=== PATIENT | female | born 1965 | race American Indian/Alaskan Native ===

== ENCOUNTER 2018-03-17 09:58 | Emergency (ER) | payer OTHER ==
--- NOTE | 2018-03-17 10:54 | ED PDOC ---
Arrival/HPI - General Historian: Patient - History of Present Illness Narrative History of Present Illness (Text): 03/17/18 10:50 A 52 year old female, whose past medical history includes cholecystectomy (4 yrs ago), presents to the emergency department complaining of worsening cold and body aches for the past week. Patient reports her cold has become progressively worse, and has been experiencing boy aches, chest tightness(starting 03:00-04:00 today), sore throat, congestion, and slight diarrhea(this morning). Patient denies any constipation, nausea, vomiting, abdominal pain, chest pain, shortness of breath, dysuria, hematuria, frequency, rash, no bump(s) on neck, or any other complaints at this time. Also, patient mentions taking Tylenol yesterday and other [id number] medications, however has had no relief of symptoms. Denies taking any recent antibiotics. No recent travel. No PMD Past Medical History - Provider Review Nursing Documentation Reviewed: Yes Family/Social History - Physician Review Nursing Documentation Reviewed: Yes Family/Social History: No Known Family HX Allergies/Home Meds Allergies/Adverse Reactions: Allergies No Known Allergies Allergy (Unverified 03/17/18 11:32) Review of Systems - Physician Review All systems were reviewed & negative as marked: Yes - Review of Systems Constitutional: absent: Fatigue, Night Sweats Eyes: absent: Vision Changes ENT: absent: Hearing Changes Respiratory: absent: SOB Cardiovascular: absent: Chest Pain (however patient experiences chest tightness starting around 03:00-04:00) Gastrointestinal: Diarrhea (slightly). absent: Abdominal Pain, Constipation, Nausea, Vomiting Genitourinary Female: absent: Dysuria, Frequency, Hematuria Musculoskeletal: absent: Arthralgias, Neck Pain, Other (no bump(s) on neck) Skin: absent: Rash Neurological: absent: Headache Physical Exam Vital Signs Reviewed: Yes Temperature: Afebrile Blood Pressure: Normal Pulse: Regular Respiratory Rate: Normal Appearance: Positive for: Well-Appearing Pain Distress: None Mental Status: Positive for: Alert and Oriented X 3 - Systems Exam Head: Present: Atraumatic, Normocephalic. No: Tenderness Pupils: Present: PERRL. No: Sluggish Extroacular Muscles: Present: EOMI. No: Gaze Palsy Conjunctiva: Present: Normal. No: Injected Ears: Present: NORMAL TM Mouth: Present: Moist Mucous Membranes Pharnyx: Present: Normal. No: ERYTHEMA, EXUDATE, TONSILS ENLARGED, Peritonsilar Swelling, Uvular Deviation, Muffled/Hoarse Voice, Strider, Soft Palate/Uvular Edema Nose (External): No: Atraumatic Nose (Internal): Present: Normal Inspection. No: Purulent Mucous Neck: Present: Normal Range of Motion. No: Meningeal Signs, MIDLINE TENDERNESS Respiratory/Chest: Present: Clear to Auscultation, Good Air Exchange. No: Respiratory Distress, Accessory Muscle Use Cardiovascular: Present: Regular Rate and Rhythm, Normal S1, S2. No: Murmurs Abdomen: No: Tenderness, Distention, Peritoneal Signs Back: Present: Normal Inspection. No: CVA Tenderness Upper Extremity: Present: Normal Inspection. No: Cyanosis, Edema Lower Extremity: Present: Normal Inspection. No: Edema Neurological: Present: GCS=15, CN II-XII Intact, Speech Normal Skin: Present: Warm, Dry, Normal Color. No: Rashes Psychiatric: Present: Alert, Oriented x 3, Normal Insight, Normal Concentration Medical Decision Making ED Course and Treatment: 03/17/18 10:54 Impression: 52 year old female with worsening cold like symptoms and body aches. Likely Viral URI. No posterior adenopathy. Well appearance. No dysphagia, odynophagia or change in phonation. No meningeal signs. No urinary complaints or vaginal d/c. She notes x1 episode of diarrhea without abdominal pain. No recent abx or travel abroad. No trauma or falls. No recent workouts. Plan: -- Reassess and disposition Progress Notes: 03/17/18 12:25 EK, NSR. PVC. No stemi, 03/17/18 12:38 pt denies any dark or bloody stool or trauma. She notes hx of iron def anemia but has been non-compliant with her iron meds Likely iron def anemia. 03/17/18 13:25 Xray unremarkable likely bronchitis- will d/c w/ zpack. will d/c home pt home w/ return indications and followup: including need to f/u w/ PMD regarding Anemia. Pt agreeable to plan. - Lab Interpretations I have reviewed the lab results: Yes - Scribe Statement The provider has reviewed the documentation as recorded by the Deepti Barahona Provider Scribe Attestation: All medical record entries made by the Deepti were at my direction and personally dictated by me. I have reviewed the chart and agree that the record accurately reflects my personal performance of the history, physical exam, medical decision making, and the department course for this patient. I have also personally directed, reviewed, and agree with the discharge instructions and disposition. Disposition/Present on Arrival - Present on Arrival Any Indicators Present on Arrival: No - Disposition Have Diagnosis and Disposition been Completed?: Yes Diagnosis: Bronchitis, Anemia Disposition: HOME/ ROUTINE Disposition Time: 13:26 Patient Problems: Current Active Problems Problem Status Onset Anemia Acute Bronchitis Acute Condition: GOOD Discharge Instructions (ExitCare): Acute Bronchitis, Anemia Caused by Low Iron, Adult (DC) Additional Instructions: TAKE THE ANTIBIOTICS AND FOLLOWUP WITH THE CLINIC. ALSO START RETAKING YOUR IRON PILLS THAT YOU HAVE AT HOME. DI AL, thank you for letting us take care of you today. Your provider was Trent Reed and you were treated for COLD / BODYACHES. The emergency medical care you received today was directed at your acute symptoms. If you were prescribed any medication, please fill it and take as directed. It may take several days for your symptoms to resolve. Return to the Emergency Department if your symptoms worsen, do not improve, or if you have any other problems. Please contact your doctor or call one of the physicians/clinics you have been referred to that are listed on the Patient Visit Information form that is included in your discharge packet. Bring any paperwork you were given at discharge with you along with any medications you are taking to your follow up v isit. Our treatment cannot replace ongoing medical care by a primary care provider outside of the emergency department. Thank you for allowing the [facility] team to be part of your care today. If you had an X-Ray or CT scan: A Radiologist will review the ED reading if any change in treatment is needed we will contact you. If you had a blood, urine, or wound culture: It will take several days for the results, if any change in treatment is needed we will contact you. If you had an STI test: It will take 48 hours for the results. Please call after 1 week if you have not heard back. Prescriptions: Azithromycin [Z-Bossman] 250 mg PO DAILY #6 tab Referrals: [facility] [Outside] - Follow up with primary [facility] [Outside] - Follow up with primary Forms: WORK NOTE
[2018-03-17 11:13] VITALS: BMI 33.9
[2018-03-17] MEDS ORDERED: Sodium Chloride 0.9% 1,000 ML IV SCH (11:15)
[2018-03-17 11:19] VITALS: TEMP 98.1; O2SAT 100
[2018-03-17 12:15] LABS: INFLUENZA A B NEGATIVE FOR FLU A/B (NEGATIVE)
[2018-03-17 12:20] LABS: BASO # 0.05 K/mm3 (0.0-2.0); BASO % 0.5 % (0.0-3.0); EOS # 0.6 (0.0-0.7); EOS % 5.7 % (1.5-5.0); GRAN # 7.02 (1.4-6.5); HEMOGLOBIN 8.1 g/dL (12.0-16.0); LYMPH # 2.6 (1.2-3.4); LYMPH % 23.5 % (22.0-35.0); MEAN CELL VOLUME 69.7 fl (80.0-105.0); MEAN CORPUSCULAR HEMOGLOBIN 19.8 pg (25.0-35.0); MEAN CORPUSCULAR HGB CONC 28.4 g/dl (31.0-37.0); MEAN PLATELET VOLUME 9.6 fl (7.0-11.0); MONO # 0.7 (0.1-0.6); MONO % 6.3 % (1.0-6.0); RBC 4.09 10^6/uL (3.5-6.1); RED CELL DISTRIBUTION WIDTH 21.8 % (11.5-14.5)
[2018-03-17 12:32] LABS: ALBUMIN 3.6 g/dL (3.0-4.8); ALT/SGPT 19 U/L (7-56); AST/SGOT 17 U/L (14-36); BLOOD UREA NITROGEN 9 mg/dL (7-21); CALCIUM 8.8 mg/dL (8.4-10.5); GFR NON-AFRICAN AMERICAN > 60
[2018-03-17 12:36] LABS: TROPONIN I < 0.01 ng/mL
[2018-03-17 13:49] VITALS: BP 150/75; PULSE 83; RESP 16
--- NOTE | 2018-03-17 14:03 | RAD ---
Date of service: 03/17/2018 HISTORY: cp COMPARISON: No prior. TECHNIQUE: Chest PA and lateral FINDINGS: LUNGS: No active pulmonary disease. PLEURA: No significant pleural effusion identified. No pneumothorax apparent. CARDIOVASCULAR: No aortic atherosclerotic calcification present. Normal cardiac size. No pulmonary vascular congestion. OSSEOUS STRUCTURES: No significant abnormalities. VISUALIZED UPPER ABDOMEN: Normal. OTHER FINDINGS: None. IMPRESSION: No active disease.
--- NOTE | 2018-03-17 19:16 | CARD ---
APPROVED REPORT Date of service: 03/17/2018 EKG Measurement Heart [id number] <Conclusion> Sinus rhythm with frequent premature ventricular complexes Possible Left atrial enlargement Borderline ECG
== END 2018-03-17 13:47 | disposition home or self-care (01) ==
LOC: ED 09:58
DX: J40 Bronchitis, not specified as acute or chronic (principal); D64.9 Anemia, unspecified
CPT/HCPCS: 71046; 80053; 82550; 84484; 85025; 87070; 87430; 87804; 93005; 99283; J7030

== ENCOUNTER 2018-06-16 12:29 | Emergency (ER) | payer OTHER ==
[2018-06-16 12:30] VITALS: BMI 33.9
[2018-06-16 13:17] VITALS: O2SAT 98
--- NOTE | 2018-06-16 14:31 | ED PDOC ---
Arrival/HPI - General Chief Complaint: Female Genitourinary Time Seen by Provider: 06/16/18 13:34 Historian: Patient - History of Present Illness Narrative History of Present Illness (Text): 06/16/18 14:31 52-year-old female presents today with vaginal discharge 2 days. Patient states she has a white vaginal discharge with a fishy odor to it. Patient states she has not been sexually active in approximately 45 days. Patient states when she was a teenager she was diagnosed with an STD but has not had any STDs recently. Patient states she's been having slight achy sensation in the abdomen. Denies nausea vomiting diarrhea or constipation. No chest pain or shortness of breath. She denies fevers or chills. No other complaints Past Medical History - Provider Review Nursing Documentation Reviewed: Yes - Travel History Have you recently traveled outside [place] w/in the past 3 mons?: No - Infectious Disease Hx of Infectious Diseases: None - Reproductive Menopause: No - Psychiatric Hx Substance Use: No - Surgical History Hx Cholecystectomy: Yes Other/Comment: Chay Muhammad 2007 - Anesthesia Hx Anesthesia Reactions: No Family/Social History - Physician Review Nursing Documentation Reviewed: Yes Family/Social History: Unknown Family HX Smoking Status: Never Smoked Hx Alcohol Use: Yes Hx Substance Use: No Allergies/Home Meds Allergies/Adverse Reactions: Allergies No Known Allergies Allergy (Unverified 03/17/18 11:32) Review of Systems - Review of Systems Constitutional: absent: Fatigue, Fevers Respiratory: absent: SOB, Cough Cardiovascular: absent: Chest Pain, Palpitations Gastrointestinal: Abdominal Pain. absent: Constipation, Diarrhea, Nausea, Vomiting Genitourinary Female: Vaginal Discharge. absent: Dysuria, Frequency, Hematuria, Vaginal Bleeding Musculoskeletal: absent: Arthralgias, Back Pain, Neck Pain Skin: absent: Rash, Pruritis Neurological: absent: Headache, Dizziness Psychiatric: absent: Anxiety, Depression Physical Exam Vital Signs Reviewed: Yes Vital Signs Temp Pulse Resp BP Pulse Ox 06/16/18 13:14 98.8 F 87 18 150/84 98 Temperature: Afebrile Blood Pressure: Normal Pulse: Regular Respiratory Rate: Normal Appearance: Positive for: Well-Appearing, Non-Toxic, Comfortable Pain Distress: None Mental Status: Positive for: Alert and Oriented X 3 - Systems Exam Head: Present: Atraumatic Mouth: Present: Moist Mucous Membranes Neck: Present: Normal Range of Motion Respiratory/Chest: Present: Clear to Auscultation, Good Air Exchange. No: Respiratory Distress, Accessory Muscle Use Cardiovascular: Present: Regular Rate and Rhythm, Normal S1, S2. No: Murmurs Abdomen: No: Tenderness, Distention, Peritoneal Signs, Rebound Genitourinary/Pelvic Exam: Present: Normal External Genitalia, Vaginal Discharge (thin white milky discharge), Cervical os Closed, Other (chaparoned by Stormy CHRISTIAN RN). No: Vaginal Bleeding, Vaginal Lesions, Adenexal Tenderness, Adenexal Mass, Cervical Motion Tendernes Upper Extremity: Present: Normal ROM Lower Extremity: Present: Normal ROM Neurological: Present: GCS=15, Speech Normal Skin: Present: Warm, Dry, Normal Color. No: Rashes Psychiatric: Present: Alert, Oriented x 3 Medical Decision Making ED Course and Treatment: 06/16/18 14:33 Patient is nontoxic well-appearing in no distress with stable vital signs Patient with vaginal discharge 2 days. Patient with a thin white vaginal discharge. Will treat with Flagyl twice a day 7 days. Patient was offered prophylactic treatment for gonorrhea and Chlamydia. Patient has refused. She wants to wait until cultures are back. Gonorrhea and Chlamydia cultures are pending. Advised patient to refrain from sex for 10 days followup with the primary care physician within the next 2 days or return if symptoms worsen persist or if new symptoms develop. Patient verbalizes understanding of discharge instructions and need for immediate followup. all aspects of this case were discussed the attending of record. Impression: Vaginal discharge Flagyl one tablet twice daily 7 days Increase fluids Follow-up with the inside [facility] within the next 2 days Follow-up with primary care physician within the next 2 days Return immediately if symptoms worsen persist or if new concerning symptoms develop Disposition/Present on Arrival - Present on Arrival Any Indicators Present on Arrival: No History of DVT/PE: No History of Uncontrolled Diabetes: No Urinary Catheter: No History of Decub. Ulcer: No History Surgical Site Infection Following: None - Disposition Have Diagnosis and Disposition been Completed?: Yes Diagnosis: Vaginal discharge Disposition: HOME/ ROUTINE Disposition Time: 14:28 Patient Plan: Discharge Patient Problems: Current Active Problems Problem Status Onset Vaginal discharge Acute Condition: GOOD Discharge Instructions (ExitCare): Vaginal Discharge in Adults Additional Instructions: Flagyl one tablet twice daily 7 days Increase fluids Follow-up with the [facility] within the next 2 days Follow-up with primary care physician within the next 2 days Return immediately if symptoms worsen persist or if new concerning symptoms develop Prescriptions: metroNIDAZOLE [Flagyl] 500 mg PO BID #14 tab Referrals: Sophie Oquendo MD [Staff Provider] - Follow up with primary Kala Nguyen MD [Medical Doctor] - Follow up with primary [facility] [Outside] - [facility] - Follow up with primary Forms: [employer] (Malay), WORK NOTE
[2018-06-16 16:48] VITALS: BP 135/88; PULSE 91; RESP 16; TEMP 98.4
== END 2018-06-16 14:40 | disposition home or self-care (01) ==
LOC: ED 12:29
DX: N89.8 Other specified noninflammatory disorders of vagina (principal)